=== PATIENT | male | born 1975 ===

== ENCOUNTER 2018-12-19 08:51 | Outpatient (CLI) | payer OTHER ==
[2018-12-19] MEDS ORDERED: Iopamidol 370 76% 100 ML VIAL ONE (11:25)
--- NOTE | 2018-12-19 13:29 | CT ---
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 COMPARISON: None. TECHNIQUE: IV injection of iodinated contrast media: 100 mL Isovue 370. Oral contrast media: Administered. FINDINGS: There are multiple tiny calcified gallstones. There are scattered minimally enlarged lymph nodes in t he inguinal, iliac chain, retroperitoneal, cody hepatis, and mesenteric, regions, nonspecific. Most of these are a few millimeters in size. No signs of colonic diverticulitis. No small bowel dilation. No mural thickening or distention of the gallbladder. The liver, abdominal aorta, bilateral kidneys, pancreas, spleen, and urinary bladder are normal. Appendix not visualized. No ascites, pneumoperitone um, or pleural effusion. No destructive osseous lesion. There is fat stranding, which could represen t scar tissue or edema, in the right inguinal region. In the right scrotum, there is a small, rim-enh ancing, moderately low density structure measuring approximately 1.0 x 1.5 x 2.0 cm. There are calcif ications and surgical clips in the left scrotum superior to the left testicle. IMPRESSION: 1. Nonspecific finding of scattered minimally enlarged lymph nodes in the mesentery, cody hepatis, retroperitoneum, iliac chains, and inguinal regions. Because they are so diffuse, it is unlikely that these represent metastatic disease from testicular cancer. However, follow-up is recommended. 2. Postsurgical changes involving right inguinal region and scrotum. 3. Small, focal, nonspecific oval density in the superior aspect of the right scrotum. 4. Metallic clips and calcifications in the left upper scrotum. 5. Incidental finding of cholelithiasis, but without signs of acute cholecystitis. 6. Possible status post appendectomy. JNR POS: [facility]
== END 2018-12-19 08:52 | disposition home or self-care (01) ==
LOC: BICCT 08:51 → CT 08:52
PROVIDERS: ATTEND Internal Medicine Hematology & Oncology
DX: C62.90 Malignant neoplasm of unspecified testis, unspecified whether descended or undescended (principal); R59.0 Localized enlarged lymph nodes; N50.9 Disorder of male genital organs, unspecified; Z98.890 Other specified postprocedural states
CPT/HCPCS: 74177; Q9967

== ENCOUNTER 2019-04-26 08:07 | Outpatient (CLI) | payer OTHER ==
--- NOTE | 2019-04-26 09:04 | CT ---
CT OF THE ABDOMEN AND PELVIS WITH IV CONTRAST: INDICATION: A 43-year-old male with malignant neoplasm of the testes with a history of a right orchiectomy and le ft groin pain and pulling sensation. CONTRAST: 70 cc of Isovue 370. FINDINGS: There is postsurgical change of a right orchiectomy. No pathologically enlarged lymph nodes are seen within the inguinal regions, pelvic chain, retroperitoneum, or mesentery. As mentioned on the comparison CT from December 19, 2018, there are some shotty-appearing lymph nodes sc attered within the abdomen and pelvis, but none are pathologically enlarged based on size criteria. There is some scarring within the right inguinal region from the patient's right orchiectomy. There is no abnormality evident by CT within the left inguinal region. Again seen are multiple gallstones within the gallbladder neck. The lung bases are clear. No focal hepatic lesion is evident. The spleen, pancreas, adrenal glands, and kidneys are normal-appearing. There is osteonecrosis involving both femoral heads that was present on the prior exam. There is no subchondral collapse. No acute osseous abnormality is evident. The moderate degenerative disk disea se at L5-S1 is stable. No osteolytic or osteoblastic lesion is evident. IMPRESSION: No evidence of metastatic disease within the abdomen or pelvis. The shotty-appearing lymph nodes described diffusely throughout the abdomen and pelvis within multipl e regions are relatively stable, but none are pathologically enlarged to suggest metastatic disease. No definite CT abnormality is seen within the left inguinal region where the patient is having pain and a pulling sensation that is limiting his ability to walk. The patient does, however, have eviden ce of osteonecrosis without evidence of subchondral collapse and may be a source of pain. 2. Stable cholelithiasis. POS: [facility]
== END 2019-04-26 08:08 | disposition home or self-care (01) ==
LOC: BICCT 08:07
PROVIDERS: ATTEND Internal Medicine Hematology & Oncology
DX: C62.90 Malignant neoplasm of unspecified testis, unspecified whether descended or undescended (principal); K80.20 Calculus of gallbladder without cholecystitis without obstruction; Z90.79 Acquired absence of other genital organ(s)
CPT/HCPCS: 74177

== ENCOUNTER 2020-12-01 07:13 | Outpatient (CLI) | payer OTHER ==
--- NOTE | 2020-12-01 08:48 | CT ---
CT ABDOMEN AND PELVIS WITH IV CONTRAST 12/01/2020 CLINICAL INFORMATION: Testicular cancer. History of prior chemotherapy and right orchiectomy. COMPARISON: 04/26/2019 Technique: Multiple contiguous axial CT images are obtained through the abdomen and pelvis with IV contrast. Cor onal reformatted images are provided. FINDINGS: Lower Chest: Lung bases are clear. No pulmonary nodule or mass is seen in either lung base. Vessels: Abdominal aorta is normal in caliber. Abdomen: Portal vein:Patent Gallbladder: Gallbladder calculi are again visualized. Liver: within normal limits. Spleen: within normal limits. Pancreas: within normal limits. Adrenals: within normal limits. Kidneys: within normal limits. Bowel: Small amount retained fecal material is seen throughout the colon. Loops of small bowel are no rmal in caliber. Appendix: Not visualized, but no secondary signs are seen to suggest appendicitis. Peritoneum: No ascites or free air; no fluid collection. Mesentery and Retroperitoneum: Stable scattered shotty lymph nodes are seen within the abdomen and pe lvis, but no enlarged lymph nodes are seen by CT size criteria. Abdominal Wall: within normal limits. Pelvis: Reproductive Organs: Patient has history of right orchiectomy, but the scrotum was incompletely image d on this exam. Bladder: within normal limits. Bones: Again noted is osteonecrosis involving the bilateral femoral heads more extensive on the left degenerative changes are seen at the lumbosacral junction. No suspicious lytic or sclerotic osseous lesions are identified. IMPRESSION: 1. No acute findings in the abdomen or pelvis. 2. Shotty lymph nodes within the abdomen predominantly in the right lower quadrant unchanged from wade or study as well as study on 12/19/2018. No enlarged lymph nodes are seen by CT size criteria. 3. Cholelithiasis. 4. Osteonecrosis involving the bilateral femoral heads greater on the left.
[2020-12-01] MEDS ORDERED: Iopamidol 370 76% 100 ML VIAL ONE (11:07)
== END 2020-12-01 07:14 | disposition home or self-care (01) ==
LOC: BICCT 07:13
PROVIDERS: ATTEND Internal Medicine Hematology & Oncology
DX: C62.90 Malignant neoplasm of unspecified testis, unspecified whether descended or undescended (principal); M87.051 Idiopathic aseptic necrosis of right femur; M87.052 Idiopathic aseptic necrosis of left femur; K80.20 Calculus of gallbladder without cholecystitis without obstruction
CPT/HCPCS: 74177; Q9967

== ENCOUNTER 2021-09-28 08:53 | Outpatient (CLI) | payer OTHER | END 2021-09-28 08:54 | disposition home or self-care (01) | LOC: BICCT 08:53 → CT 08:54 | PROVIDERS: ATTEND Internal Medicine Hematology & Oncology | DX: C62.90 Malignant neoplasm of unspecified testis, unspecified whether descended or undescended (principal); K80.20 Calculus of gallbladder without cholecystitis without obstruction | CPT/HCPCS: 74177 ==